=== PATIENT | female | born 1995 | race Caucasian/White ===

== ENCOUNTER 2019-06-08 09:16 | Emergency (ER) | payer MEDICAID ==
[~2019-06-08] VITALS: Ht 160 cm; Wt 81.0 kg
[~2019-06-08 09:16] MED LIST: DIPH25CA83 PO; HYDR-4383 PO; [UNRECOGNIZED DRUG - OTHER]
[2019-06-08 09:19] VITALS: BP 122/73
[2019-06-08] MEDS ORDERED: AMOX-580 PO (09:28)
[2019-06-08] MEDS ORDERED: TRAM50TA2 PO (09:28)
[2019-06-08] MEDS ORDERED: CHLO473M3 PO (09:28)
[2019-06-09] MEDS ORDERED: CLIN-96 PO (08:44)
== END 2019-06-08 09:38 | disposition home or self-care (01) ==
LOC: ER 09:16
DX: K04.7 Periapical abscess without sinus (principal); Z90.89 Acquired absence of other organs; Z79.899 Other long term (current) drug therapy
CPT/HCPCS: 99283

== ENCOUNTER 2019-06-09 07:22 | Emergency (ER) | payer MEDICAID ==
[~2019-06-09] VITALS: Ht 160 cm; Wt 79.5 kg
[~2019-06-09 07:22] MED LIST changes: +AMOX-580 PO; +CHLO473M3 PO; +TRAM50TA2 PO
[2019-06-09 07:52] VITALS: BP 118/67
[2019-06-09] MEDS ORDERED: clindamycin phosphate 150mg/ml inj. IM ONE (08:20)
[2019-06-09] MEDS ORDERED: CLIN-96 PO (08:44)
== END 2019-06-09 09:14 | disposition home or self-care (01) ==
LOC: ER 07:23
DX: S03.2XXA Dislocation of tooth, initial encounter (principal); K04.7 Periapical abscess without sinus; Z90.89 Acquired absence of other organs; Z98.890 Other specified postprocedural states; X58.XXXA Exposure to other specified factors, initial encounter; Y93.89 Activity, other specified; Y92.89 Other specified places as the place of occurrence of the external cause; Y99.8 Other external cause status
CPT/HCPCS: 96372; 99283; J3490

== ENCOUNTER 2019-09-24 14:46 | Emergency (ER) | payer MEDICAID ==
[~2019-09-24] VITALS: Ht 160 cm; Wt 83.0 kg
[~2019-09-24 14:46] MED LIST changes: -AMOX-580 PO; +CLIN-96 PO; -TRAM50TA2 PO
[2019-09-24 15:19] LABS: BASOPHILS % (AUTO) 0.3 % (0-1); EOSINOPHILS # (AUTO) 0.1 X10'3 (0-0.9); EOSINOPHILS % (AUTO) 0.8 % (0-6); HEMATOCRIT 39.7 % (35.0-45.0); HEMOGLOBIN 13.7 g/dl (12.0-16.0); LYMPHOCYTES # (AUTO) 0.9 X10'3 (1.1-4.8); LYMPHOCYTES % (AUTO) 9.7 % (21-51); MEAN CORPUSCULAR HEMOGLOBIN 31.5 PG (27.0-31.0); MEAN CORPUSCULAR HGB CONC 34.5 g/dL (33.0-36.5); MEAN CORPUSCULAR VOLUME 91.3 FL (78-98); MONOCYTES # (AUTO) 0.3 X10'3 (0-0.9); MONOCYTES % (AUTO) 2.8 % (2-12); NEUTROPHILS # (AUTO) 7.9 X10'3 (1.8-7.7); NEUTROPHILS % (AUTO) 86.4 % (42-75); PLATELET COUNT 262 X10'3 (140-440); RED BLOOD COUNT 4.35 X10'6 (4.20-5.60); RED CELL DISTRIBUTION WIDTH 13.1 % (11.5-14.5); WHITE BLOOD COUNT 9.2 X10'3 (4.5-11.0)
[2019-09-24 15:45] LABS: ALANINE AMINOTRANSFERASE 30 U/L (12-78); ALBUMIN 4.2 G/DL (3.4-5.0); ALBUMIN/GLOBULIN RATIO 0.9 (1.1-1.5); ALKALINE PHOSPHATASE 63 IU/L (46-116); ANION GAP 9 (8-16); ASPARTATE AMINO TRANSFERASE 19 U/L (10-37); BILIRUBIN,TOTAL 0.6 MG/DL (0.1-1.0); BLOOD UREA NITROGEN 16 MG/DL (7-18); BUN/CREATININE RATIO 20.3 (6.6-38.0); CALCIUM 9.5 MG/DL (8.5-10.1); CHLORIDE 107 MMOL/L (99-107); CREATININE 0.79 MG/DL (0.40-0.90); GLUCOSE 93 MG/DL (70-104); POTASSIUM 3.9 MMOL/L (3.5-5.1); SODIUM 142 MMOL/L (135-145); TOTAL CARBON DIOXIDE 26.1 MMOL/L (24-32); TOTAL PROTEIN 9.1 G/DL (6.4-8.2); eGFR 89 ML/MIN
[2019-09-24] MEDS ORDERED: ondansetron 4mg rapidly disintigrating tab PO ONE (16:00)
[2019-09-24] MEDS ORDERED: dicyclomine 10 MG capsule PO ONE (16:00)
[2019-09-24] MEDS ORDERED: ONDA4TAB12 PO (16:01)
[2019-09-24] MEDS ORDERED: DICY10CA88 PO (16:01)
[2019-09-24 16:21] VITALS: BP 182/61
[2019-09-24 16:32] LABS: URINE HCG NEGATIVE (NEG)
[2019-09-24 16:40] LABS: CLARITY,URINE CLEAR (Clear); COLOR,URINE YELLOW (Yellow); GLUCOSE, URINE NEGATIVE (Neg); KETONES,URINE NEGATIVE (Neg); LEUKOCYTE ESTERASE ,URINE NEGATIVE (Neg); NITRITES, URINE NEGATIVE (Neg); OCCULT BLOOD,URINE MODERATE (Neg); PH,URINE 5.5 (4.8-8.0); PROTEIN,URINE NEGATIVE (Neg); UROBILINOGEN,URINE 0.2 E.U/dL (0.2-1.0)
[2019-09-24 16:42] LABS: UA COLLECTION TYPE CLN CATCH MIDSTREAM
[2019-09-24 16:51] LABS: BACTERIA,URINE NONE SEEN /HPF (Neg); RBC,URINE 0-2 /HPF (0-2); WBC,URINE NONE SEEN /HPF (0-4)
[2019-09-24 16:52] LABS: MUCUS STRANDS MODERATE /LPF (Neg); SQUAMOUS EPITHELIAL CELL,UR FEW /LPF (FEW)
== END 2019-09-24 16:23 | disposition home or self-care (01) ==
LOC: ER 14:47
DX: R10.11 Right upper quadrant pain (principal); R11.2 Nausea with vomiting, unspecified; R50.9 Fever, unspecified; R19.7 Diarrhea, unspecified; Z90.89 Acquired absence of other organs; Z77.22 Contact with and (suspected) exposure to environmental tobacco smoke (acute) (chronic); Z79.899 Other long term (current) drug therapy
CPT/HCPCS: 36415; 80053; 81001; 81025; 85025; 85610; 99283

== ENCOUNTER 2019-10-29 08:10 | Emergency (ER) | payer MEDICAID ==
[~2019-10-29] VITALS: Ht 160 cm; Wt 81.8 kg
[~2019-10-29 08:10] MED LIST changes: +CLIN-90 PO; -CLIN-96 PO; +ONDA4TAB12 PO
[2019-10-29 08:28] VITALS: BP 115/78
[2019-10-29] MEDS ORDERED: DOXY100C43 PO (09:08)
[2019-10-29] MEDS ORDERED: CefTRIAXone 250MG inj IM ONE (09:10)
[2019-10-29] MEDS ORDERED: CefTRIAXone 250MG IM Kit w/LIDOcaine IM ONE (09:30)
[2019-10-29 10:28] LABS: CLARITY,URINE CLEAR (Clear); COLOR,URINE YELLOW (Yellow); GLUCOSE, URINE NEGATIVE (Neg); KETONES,URINE NEGATIVE (Neg); LEUKOCYTE ESTERASE ,URINE NEGATIVE (Neg); NITRITES, URINE NEGATIVE (Neg); OCCULT BLOOD,URINE SMALL (Neg); PROTEIN,URINE NEGATIVE (Neg); URINE HCG NEGATIVE (NEG); UROBILINOGEN,URINE 0.2 E.U/dL (0.2-1.0)
[2019-10-29 10:30] LABS: UA COLLECTION TYPE CLN CATCH MIDSTREAM
[2019-10-29 10:36] LABS: MUCUS STRANDS MANY /LPF (Neg); SQUAMOUS EPITHELIAL CELL,UR MODERATE /LPF (FEW)
[2019-10-29 10:37] LABS: TRANSITIONAL EPI CELLS,URINE FEW /HPF
[2019-10-29 10:38] LABS: RBC,URINE 0-2 /HPF (0-2)
[2019-10-29 10:44] LABS: BACTERIA,URINE 1+ /HPF (Neg)
== END 2019-10-29 10:14 | disposition home or self-care (01) ==
LOC: ER 08:11
DX: Z20.2 Contact with and (suspected) exposure to infections with a predominantly sexual mode of transmission (principal); Z90.89 Acquired absence of other organs; Z79.899 Other long term (current) drug therapy
CPT/HCPCS: 36415; 81001; 81025; 87088; 87491; 87591; 96372; 99283; J0696

== ENCOUNTER 2020-03-17 10:02 | Emergency (ER) | payer MEDICAID ==
[~2020-03-17] VITALS: Ht 160 cm; Wt 85.9 kg
[~2020-03-17 10:02] MED LIST changes: -CLIN-90 PO; +CLIN-97 PO
[2020-03-17 10:44] LABS: BASOPHILS % (AUTO) 0.4 % (0-1); EOSINOPHILS # (AUTO) 0.1 X10'3 (0-0.9); EOSINOPHILS % (AUTO) 1.7 % (0-6); HEMATOCRIT 34.3 % (35.0-45.0); HEMOGLOBIN 11.7 g/dl (12.0-16.0); LYMPHOCYTES # (AUTO) 1.9 X10'3 (1.1-4.8); LYMPHOCYTES % (AUTO) 26.3 % (21-51); MEAN CORPUSCULAR HEMOGLOBIN 30.4 PG (27.0-31.0); MEAN CORPUSCULAR VOLUME 89.3 FL (78-98); MEAN PLATELET VOLUME 8.2 FL (7.4-10.4); MONOCYTES # (AUTO) 0.4 X10'3 (0-0.9); MONOCYTES % (AUTO) 5.3 % (2-12); NEUTROPHILS # (AUTO) 4.7 X10'3 (1.8-7.7); NEUTROPHILS % (AUTO) 66.3 % (42-75); PLATELET COUNT 272 X10'3 (140-440); RED BLOOD COUNT 3.84 X10'6 (4.20-5.60); RED CELL DISTRIBUTION WIDTH 13.4 % (11.5-14.5)
[2020-03-17 10:58] LABS: ALANINE AMINOTRANSFERASE 17 U/L (12-78); ALKALINE PHOSPHATASE 55 IU/L (46-116); ANION GAP 7 (8-16); ASPARTATE AMINO TRANSFERASE 15 U/L (10-37); BILIRUBIN,TOTAL 0.2 MG/DL (0.1-1.0); BLOOD UREA NITROGEN 18 MG/DL (7-18); BUN/CREATININE RATIO 20.7 (6.6-38.0); CHLORIDE 107 MMOL/L (99-107); CREATININE 0.87 MG/DL (0.40-0.90); GLUCOSE 102 MG/DL (70-104); POTASSIUM 4.3 MMOL/L (3.5-5.1); SODIUM 139 MMOL/L (135-145); TOTAL CARBON DIOXIDE 24.9 MMOL/L (24-32); TOTAL PROTEIN 8.1 G/DL (6.4-8.2); eGFR 79 ML/MIN
[2020-03-17 11:00] LABS: CLARITY,URINE SLIGHTLY CLOUDY (Clear); COLOR,URINE YELLOW (Yellow); GLUCOSE, URINE NEGATIVE (Neg); KETONES,URINE NEGATIVE (Neg); LEUKOCYTE ESTERASE ,URINE NEGATIVE (Neg); NITRITES, URINE NEGATIVE (Neg); OCCULT BLOOD,URINE MODERATE (Neg); PROTEIN,URINE NEGATIVE (Neg); UROBILINOGEN,URINE 0.2 E.U/dL (0.2-1.0)
[2020-03-17 11:03] LABS: URINE HCG NEGATIVE (NEG)
[2020-03-17 11:07] LABS: UA COLLECTION TYPE CLN CATCH MIDSTREAM
[2020-03-17 11:08] LABS: MUCUS STRANDS FEW /LPF (Neg); SQUAMOUS EPITHELIAL CELL,UR MODERATE /LPF (FEW)
[2020-03-17 11:09] LABS: BACTERIA,URINE 1+ /HPF (Neg); RBC,URINE 0-2 /HPF (0-2); WBC,URINE 0-4 /HPF (0-4)
[2020-03-17] MEDS ORDERED: MEDR150V IM (11:28)
[2020-03-17] MEDS ORDERED: PANT-47 PO (11:49)
[2020-03-17] MEDS ORDERED: mag hydrox/Alum hydrox/simeth 30ml oral suspension PO ONE (11:50)
[2020-03-17] MEDS ORDERED: LIDOcaine Viscous 15ml cup MM ONE (11:50)
[2020-03-17] MEDS ORDERED: sucralfate 1 gm tablet PO ONE (11:50)
[2020-03-17 12:37] VITALS: BP 106/62
== END 2020-03-17 12:38 | disposition home or self-care (01) ==
LOC: ER 10:03
DX: K29.70 Gastritis, unspecified, without bleeding (principal); Z79.899 Other long term (current) drug therapy
CPT/HCPCS: 36415; 80053; 81001; 81025; 85025; 99283; 99284

== ENCOUNTER 2021-05-26 10:15 | Emergency (ER) | payer MEDICAID ==
[~2021-05-26] VITALS: Ht 160 cm; Wt 90.9 kg
[~2021-05-26 10:15] MED LIST changes: -CHLO473M3 PO; -CLIN-97 PO; -DIPH25CA83 PO; -HYDR-4383 PO; +MEDR150V IM; -ONDA4TAB12 PO; +PANT-47 PO; -[UNRECOGNIZED DRUG - OTHER]
[2021-05-26] MEDS ORDERED: ketorolac tromethamine 15mg/ml inj. IM ONE (10:50)
[2021-05-26] MEDS ORDERED: ONDA4TAB6 PO (11:15)
[2021-05-26] MEDS ORDERED: HYDR-3965 PO (11:15)
[2021-05-26 11:56] VITALS: BP 122/98
== END 2021-05-26 11:57 | disposition home or self-care (01) ==
LOC: ER 10:16
DX: S92.354A Nondisplaced fracture of fifth metatarsal bone, right foot, initial encounter for closed fracture (principal); X50.9XXA Other and unspecified overexertion or strenuous movements or postures, initial encounter; Y93.89 Activity, other specified; Y92.89 Other specified places as the place of occurrence of the external cause; Y99.8 Other external cause status
CPT/HCPCS: 73630; 96372; 99283; J1885

== ENCOUNTER 2021-09-30 15:59 | Emergency (ER) | payer MEDICAID ==
[~2021-09-30] VITALS: Ht 160 cm; Wt 90.9 kg
[~2021-09-30 15:59] MED LIST changes: +ONDA4TAB6 PO
[2021-09-30 16:04] VITALS: BP 120/87
== END 2021-09-30 16:13 | disposition home or self-care (01) ==
LOC: ER 15:59
DX: M79.671 Pain in right foot (principal); Z90.89 Acquired absence of other organs; Z79.899 Other long term (current) drug therapy
CPT/HCPCS: 99281

== ENCOUNTER 2021-12-18 11:31 | Emergency (ER) | payer MEDICAID ==
[~2021-12-18] VITALS: Ht 160 cm; Wt 90.9 kg
[2021-12-18 11:46] VITALS: BP 109/80
[2021-12-18] MEDS ORDERED: LIDOcaine Viscous 15ml cup MM PRN (12:40)
[2021-12-18] MEDS ORDERED: MELO7.5T12 PO (12:43)
[2021-12-18] MEDS ORDERED: LIDO20SO24 PO (12:43)
== END 2021-12-18 15:28 | disposition home or self-care (01) ==
LOC: ER 11:31
DX: U07.1 COVID-19 (principal); J06.9 Acute upper respiratory infection, unspecified; Z79.899 Other long term (current) drug therapy
CPT/HCPCS: 87635; 99283; C9803

== ENCOUNTER 2021-12-21 08:17 | Emergency (ER) | payer MEDICAID ==
[~2021-12-21] VITALS: Ht 160 cm; Wt 90.9 kg
[~2021-12-21 08:17] MED LIST changes: +LIDO20SO24 PO; +MELO7.5T12 PO
[2021-12-21 08:41] VITALS: BP 119/74
[2021-12-21] MEDS ORDERED: IBUP-1984 PO (10:08)
[2021-12-21] MEDS ORDERED: CLIN300C54 PO (10:08)
== END 2021-12-21 10:19 | disposition home or self-care (01) ==
LOC: ER 08:18
DX: K04.7 Periapical abscess without sinus (principal); K08.89 Other specified disorders of teeth and supporting structures; Z90.89 Acquired absence of other organs; Z79.2 Long term (current) use of antibiotics; Z79.899 Other long term (current) drug therapy
CPT/HCPCS: 99283

== ENCOUNTER 2024-02-18 21:32 | Emergency (ER) | payer MEDICAID ==
[~2024-02-18] VITALS: Ht 160 cm; Wt 94.0 kg
[~2024-02-18 21:32] MED LIST changes: +LIDO15SO9 PO; -LIDO20SO24 PO
[2024-02-18 21:38] VITALS: TEMP 98.4
[2024-02-18] MEDS ORDERED: NAPR-56 PO (22:50)
[2024-02-18] MEDS: ketorolac tromethamine 15mg/ml inj. IM ONE (23:10)
[2024-02-18 23:24] VITALS: BP 126/84; PULSE 80; RESP 16; O2SAT 98
== END 2024-02-18 23:28 | disposition home or self-care (01) ==
LOC: ER 21:32
DX: R07.81 Pleurodynia (principal); W19.XXXA Unspecified fall, initial encounter; Y93.89 Activity, other specified; Y92.89 Other specified places as the place of occurrence of the external cause; Y99.8 Other external cause status
CPT/HCPCS: 71046; 96372; 99283; J1885

== ENCOUNTER 2025-02-01 19:50 | Emergency (ER) | payer MEDICAID ==
[~2025-02-01] VITALS: Ht 160 cm; Wt 92.4 kg
[2025-02-01] MEDS ORDERED: CEPH250T PO (20:55)
[2025-02-01] MEDS: diphenhydrAMINE 25mg capsule PO ONE (21:03)
[2025-02-01] MEDS: cephalexin 250mg capsule PO ONE (21:04)
[2025-02-01 21:10] VITALS: BP 132/88; PULSE 67; RESP 17; TEMP 98.3; O2SAT 99
== END 2025-02-01 21:09 | disposition home or self-care (01) ==
LOC: ER 19:51
DX: L03.113 Cellulitis of right upper limb (principal); Z90.89 Acquired absence of other organs
CPT/HCPCS: 99283; Q0163

== ENCOUNTER 2025-05-20 15:22 | Emergency (ER) | payer MEDICAID ==
[~2025-05-20] VITALS: Ht 160 cm; Wt 93.3 kg
[2025-05-20 15:33] VITALS: BP 114/79; PULSE 79; RESP 18; TEMP 98.6; O2SAT 98
--- NOTE | 2025-05-20 15:37 | Physician Documentation ---
History of Present Illness ~ Chief Complaint: Bite-insect Stated Complaint: MULTIPLE MED COMPLAINTS Primary Medical Doctor: None HPI This is a 30-year-old female who presents with abscesses to left axilla and right upper thigh. Patient reports no fevers. Tetanus within 5 years?: Yes Medication Reconciliation Allergies: Coded Allergies: No Known Allergies (Unverified , 02/01/25) Scheduled Clindamycin HCl (Clindamycin HCl), 3 CAP PO Q8H Lidocaine HCl (Lidocaine HCl Viscous), 5 ML PO 5XD Medroxyprogesterone Acetate (Depo-Provera), 150 MG IM Q 3 MONTHS, (Reported) Meloxicam (Mobic), 7.5 MG PO DAILY Ondansetron Hcl (Zofran), 1 TAB PO Q6H Pantoprazole Sodium (PROTONIX tablet), 1 TAB PO DAILY Discontinued Medications Sulfamethoxazole/Trimethoprim (Bactrim Ds Tablet), 1 TAB PO Q12H Discontinued Reason: Auto Discontinued Past Medical History Past Medical History: No Pertinent History Past Surgical History: tonsillectomy Alcohol Use: None Drug Use: none Lives with: Family Lives In: Home Occupation: student Review of Systems ROS As stated above in the HPI, otherwise all systems are reviewed and negative. Physical Exam Vital Signs: Temperature: 98.6, Source: Temporal, Heart Rate: 79, Respiratory Rate: 18, BP: 114/79, Pulse Oximetry: 98, Weight: 93.350 Oxygen Flow Rate: 0 Physical Exam VITALS: Reviewed and as above. GENERAL: Alert, nontoxic appearing, no apparent distress. RESPIRATORY: No increased work of breathing, no respiratory distress, speaking in full clear sentences Progress Results/Orders Results/Orders Medical Decision Making Findings MSE performed in triage and patient returned to ED lobby by nursing staff to await available ED room, patient appears to have eloped from ED lobby Differential Dx:Considerations: Include: Abrasion, Allergic reaction, Cellulitis, Fracture, Hematoma, Insect envenomation, Laceration, Punture wound, Retained foreign body, Urticaria Departure Disposition: 07 LEFT AWOL/ELOPED Impression: Primary Impression: Abscess Referrals: NO PRIMARY CARE PROVIDER (PCP) Signature Scribe Signature: No scribe Attestation: The note accurately reflects work and decisions made by me.SHANNAN Espinal 05/29/25 14:14 VERONICA DELATORRE May 20, 2025 15:37
[2025-05-21] MEDS ORDERED: SULF1TAB49 PO (12:02)
[2025-05-24] MEDS ORDERED: CLIN-119 PO (10:06)
== END 2025-05-20 19:12 | disposition left against medical advice (07) ==
LOC: ER 15:22
DX: L02.412 Cutaneous abscess of left axilla (principal); L02.415 Cutaneous abscess of right lower limb; Z90.89 Acquired absence of other organs
CPT/HCPCS: 99281; 99282

== ENCOUNTER 2025-05-21 10:21 | Emergency (ER) | payer MEDICAID ==
[~2025-05-21] VITALS: Ht 160 cm; Wt 90.9 kg
[2025-05-21 10:34] VITALS: BP 131/72; PULSE 81; RESP 16; TEMP 98.2; O2SAT 99
--- NOTE | 2025-05-21 10:41 | Physician Documentation ---
History of Present Illness ~ Chief Complaint: Abscess Stated Complaint: ABSCESS Time Seen by MD: 11:15 Primary Medical Doctor: None HPI This is a 30-year-old female who presents with pain and swelling to her right upper thigh and left axilla. Patient reports no fever Tetanus Within 5 Years: Yes Medication Reconciliation Allergies: Coded Allergies: No Known Allergies (Unverified , 02/01/25) Scheduled Lidocaine HCl (Lidocaine HCl Viscous), 5 ML PO 5XD Medroxyprogesterone Acetate (Depo-Provera), 150 MG IM Q 3 MONTHS, (Reported) Meloxicam (Mobic), 7.5 MG PO DAILY Ondansetron Hcl (Zofran), 1 TAB PO Q6H Pantoprazole Sodium (PROTONIX tablet), 1 TAB PO DAILY Sulfamethoxazole/Trimethoprim (Bactrim Ds Tablet), 1 TAB PO Q12H Past Medical History Past Medical History: No Pertinent History Past Surgical History: tonsillectomy Alcohol Use: None Drug Use: none Lives with: Family Lives In: Home Occupation: student Review of Systems ROS Areas of pain and swelling to left axilla and right lateral thigh as stated above in the HPI, otherwise all systems are reviewed and negative. Physical Exam Vital Signs: Temperature: 98.2, Source: Oral, Heart Rate: 81, Respiratory Rate: 16, BP: 131/72, Pulse Oximetry: 99, Weight: 90.910 Oxygen Flow Rate: 0 Physical Exam VITALS: Reviewed and as above. GENERAL: Alert, nontoxic appearing, no apparent distress. RESPIRATORY: No increased work of breathing, no respiratory distress, speaking in full clear sentences SKIN: 2 cm x 3 cm area erythema to the left axilla containing a small area of fluctuance surrounded by an area of induration, 2 cm x 3 cm area of erythema and induration without fluctuance to right upper lateral thigh Procedures I & D Procedure : Site: Left axilla Anesthesia: Lidocaine w/ Epi Volume Anesthetic (mls): 5 Blade Size: 11 Prep/Supplies: drapes applied, dressing applied Incision: pus drained, blood drained Tolerated Procedure Well?: yes, no complications Progress Results/Orders Results/Orders Orders - VERONICA DELATORRE [employer] Laceration/I&D Tray Set Up (05/21/25 10:38) Cult (Aer) Routine C&S+Gram St (05/21/25 12:03) Completed Orders - VERONICA DELATORRE [employer] Tetanus/Pertuss/Diph Acell/Pf (Boostrix (05/21/25 10:40) Lidocaine 1% W/Epi 1:100,000 (Xylocaine (05/21/25 10:40) Vital Signs 05/21/25 10:34 Temp 98.2 Pulse 81 Resp 16 B/P (MAP) 131/72 Pulse Ox 99 O2 Flow Rate 0 Microbiology Date/Time Source Procedure Growth Status 05/21/25 12:11 Axilla Abscess Routine Culture - Preliminary Resulted Medical Decision Making Findings This otherwise healthy and well appearing 30-year-old female presents with pain and redness to left axilla and right thigh. Area of pain and swelling to left axilla is consistent with abscess and the area of pain and swelling to right thigh is consistent with cellulitis. History is reassuring as patient reports no fever, chills, or other system thing symptoms. There is no evidence of rapidly progressing symptoms, crepitus, pain out of proportion, pain away from site or other signs/symptoms concerning for necrotizing fasciitis, myositis, or other deep tissue infection. I considered other high-risk diagnoses such as acute osteomyelitis, deep space abscess, septic joint, foreign body, or deep vein thrombosis or septic phlebi tis. Abscess was incised and drained without complication. Physical exam is otherwise benign, patient is non-toxic and well-appearing, afebrile, with stable vital signs I discussed with patient regarding potential diagnosis and discharge plan including home care instructions and follow up instructions. Patient given strict return precautions including rapidly progressing symptoms, pain out of proportion/severe pain, mucosal involvement, and/or fever > 100.4. Patient verbalized understanding of return to care precautions, follow up instructions, and home care instructions. Differential Dx:Considerations: Include: Bacteremia, Erysipelas, Gas gangrene, Hidrademitis suppurativa, Lymphangitis, Osteromyelitis, Septicemia, Other (Necrotizing fasciitis) Departure Disposition: 01 HOME / SELF CARE / HOMELESS Impression: Primary Impression: Abscess Additional Impression: Cellulitis Qualified Codes: L03.115 - Cellulitis of right lower limb Condition: Improved Discharge Instructions: Abscess, Care After, Incision and Drainage Additional Instructions: Soak the area with a warm moist compress and wash the area two to 3 times a day to encourage drainage, otherwise keep the area clean dry and covered. Please take the prescribed antibiotics until they are all gone. Please follow up with your primary care provider in the next few days. Please return to the emergency department for any new or worsening concerning symptoms including but not limited to increased pain and swelling to the area, or if you develop a fever over 100.4 that does not lower with ibuprofen or Tylenol. You may use ibuprofen or Tylenol as needed as directed by [id number] packaging for pain. Referrals: NO PRIMARY CARE PROVIDER (PCP) Prescriptions Sulfamethoxazole/Trimethoprim (Bactrim Ds Tablet) 800 Mg-160 Mg Tablet 1 TAB PO Q12H for 7 Days, #14 TAB Prov: VERONICA DELATORRE 05/21/25 Education Educated: Patient Educated regarding: diagnosis, treatment, prognosis, need for follow up Signature Scribe Signature: No scribe Attestation: The note accurately reflects work and decisions made by me.SHANNAN Espinal 05/21/25 20:44 VERONICA DELATORRE May 21, 2025 10:41
[2025-05-21] MEDS: TETanus/Pertussis (Acell)/Diphther VAC/PF (Tdap-Adult) 0.5ml syringe IMVAC ONE (11:15)
[2025-05-21] MEDS ORDERED: SULF1TAB49 PO (12:02)
[2025-05-21] MEDS: LIDOcaine 1% W/epiNEPHrine 1:100,000 20ml vial IJ ONE (12:08)
[2025-05-24] MEDS ORDERED: CLIN-119 PO (10:06)
== END 2025-05-21 12:18 | disposition home or self-care (01) ==
LOC: ER 10:22
DX: L02.412 Cutaneous abscess of left axilla (principal); L03.115 Cellulitis of right lower limb; Z90.89 Acquired absence of other organs
CPT/HCPCS: 10060; 87070; 87077; 87186; 90471; 90715; 99283; A6449